=== PATIENT | female | born 1950 | race Caucasian/White ===

== ENCOUNTER 2017-03-13 22:26 | Emergency (ER) | payer MEDICARE ==
[2017-03-13] MEDS ORDERED: OXYMETAZOLINE 0.05% NASAL 15 SPRAYS/15 ML BTL NASAL ONE ×2 (22:55→22:58)
[2017-03-13] MEDS ORDERED: cloNIDine HCL 0.1 MG TABLET PO ONE (23:51)
[2017-03-14] MEDS ORDERED: cloNIDine HCL 0.1 MG TABLET PO ONE (00:13)
--- NOTE | 2017-03-14 00:44 | ER NURSING DOCUMENTATION ---
Nurse's Notes [facility] Name:Landy Savage Age:66 yrs Sex:Female :1950 Arrival Date:03/13/2017 Time:22:26 Bed1 Private MD: Diagnosis:Epistaxis - Nose Bleed Presentation: 03/13 22:29 Acuity: SHREE 3 bw2 22:36 Presenting complaint: Patient states: pt states shes had a nosebleed x 1 hour. pt bw2 denies trauma. pt states shes had a dry nose since arriving to this elevation. Transition of care: patient was not received from another setting of care. 22:36 Method Of Arrival: Walk In 2 Triage Assessment: 22:37 General: Appears in no apparent distress, Behavior is anxious, appropriate for age. bw2 Pain: Denies pain. EENT: Nares with bleeding noted. Historical: - Allergies: No known drug Allergies; - Tetanus: < 10 years. - Ebola Screening: : Patient negative for fever greater than or equal to 101.5 degrees Fahrenheit, and additional compatible Ebola Virus Disease symptoms. Patient denies exposure to infectious person. Patient denies travel to an Ebola-affected area in the 21 days before illness onset. No symptoms or risks identified at this time. . - Immunization history: Flu Vaccine < 1 year. - Social history: Smoking status: Patient states was never smoker of tobacco. Screenin:38 Infectious Disease Risk None. Abuse screen: Denies threats or abuse. Nutritional bw2 screening: No deficits noted. Assessment: 22:38 See Triage Assessment done by same RN. bw2 Vital Signs: 22:37 BP 212 / 102; Pulse 74; Resp 18; Temp 97.8; Pulse Ox 99% ; Weight 72.57 kg; Height 5 bw2 ft. 4 in. (162.56 cm); Pain 0/10; 22:50 BP 183 / 90; bw2 03/14 00:42 BP 173 / 80; Pulse 81; Resp 17; Pulse Ox 96% on R/A; bw2 03/13 22:37 Body Mass Index 27.46 (72.57 kg, 162.56 cm) 2 ED Course: 03/13 22:27 Patient arrived in ED. ma1 22:29 Mary Jo Morgan is Primary Nurse. bw2 22:29 Triage completed. bw2 22:38 Valuables Remains with patient Patient has correct armband on for positive bw2 identification. 22:50 Nosebleed Care Nasal Clamp Applied. bw2 23:29 Binu Beltran MD is Attending Physician. alysha Administered Medications: 22:50 Drug: Afrin Drops (0.05 %) 1 sprays; Route: Intranasal; Site: both nares; bw2 23:38 Drug: cloNIDine 0.1 mg; Route: PO; bw2 03/14 00:20 Follow up: Response: No change in condition bw2 00:00 Drug: cloNIDine 0.1 mg; Route: PO; 2 Outcome: 03/13 23:32 Discharge ordered by . alysha 03/14 00:42 Discharged to home ambulatory, with significant other. 2 Condition: good Discharge Assessment: Patient awake, alert and oriented x 3. No cognitive and/or functional deficits noted. Patient verbalized understanding of disposition instructions. Discharge instructions given to patient, significant other, Instructed on discharge instructions, follow up and referral plans. medication usage, Nosebleed care Demonstrated understanding of instructions, medications, Prescriptions given X 1. 00:42 Patient left the ED. 2 03/15 13:51 Discharge F/U Call: Unable to reach: no answer Signatures: Binu Beltran MD MD jm Hofsess, [facility] Paulette Lassiter ma
--- NOTE | 2017-03-14 00:44 | ER PHYSICIAN DOCUMENTATION ---
Physician Documentation [facility] Name:Landy Savage Age:66 yrs Sex:Female :1950 Arrival Date:03/13/2017 Time:22:26 Bed1 Private MD: Binu Chowdhury Disposition: 03/13/17 23:32 Discharged to Home/Self Care. Impression: Epistaxis - Nose Bleed. - Condition is Good. - Discharge Instructions: EPISTAXIS (Adult). - Prescriptions for losartan 50 mg Oral tablet - take 1 tablet by ORAL route once daily; 20 tablet. - Medical Reconciliation form form. - Follow up: Private Physician; When: As needed; Reason: Continuance of care. - Problem is new. - Symptoms have improved. HPI: 03/13 23:00 This 66 yrs old Female presents to ER via Walk In with complaints of Nose jm Bleed. 23:00 The patient presents with a nose bleed, that is apparently anterior, from the left jm nare. Onset: The symptom(s)/episode began/occurred 2 hour(s) ago. Severity of symptoms: in the emergency department the symptoms have improved. Historical: - Allergies: No known drug Allergies; - Tetanus: < 10 years. - Ebola Screening: : Patient negative for fever greater than or equal to 101.5 degrees Fahrenheit, and additional compatible Ebola Virus Disease symptoms. Patient denies exposure to infectious person. Patient denies travel to an Ebola-affected area in the 21 days before illness onset. No symptoms or risks identified at this time. . - Immunization history: Flu Vaccine < 1 year. - Social history: Smoking status: Patient states was never smoker of tobacco. ROS: 23:00 Constitutional: Negative for fever. 23:00 ENT: Positive for nose bleed. Exam: 23:00 Constitutional: The patient appears alert, awake. 23:00 ENT: Nose: Nasal mucosa: normal, bleeding, is not appreciated, Examination of the other nostril shows no obvious abnormality. Vital Signs: 22:37 BP 212 / 102; Pulse 74; Resp 18; Temp 97.8; Pulse Ox 99% ; Weight 72.57 kg; Height 5 bw2 ft. 4 in. (162.56 cm); Pain 0/10; 22:50 BP 183 / 90; bw2 0704 00:42 BP 173 / 80; Pulse 81; Resp 17; Pulse Ox 96% on R/A; [facility] 03/13 22:37 Body Mass Index 27.46 (72.57 kg, 162.56 cm) 2 Procedures: 01:08 Epistaxis treatment: A small amount of bleeding noted from Treated using Oxymetazoline sprays, direct pressure, nasal clamp, Bleeding stopped. MDM: 03/13 22:30 Patient medically screened. 03/14 01:08 Differential diagnosis: spontaneous epistaxis. Data reviewed: vital signs, nurses jm notes, and as a result, I will discharge patient. Counseling: I had a detailed discussion with the patient and/or guardian regarding: the historical points, exam findings, and any diagnostic results supporting the discharge/admit diagnosis. Medication response: The patient's symptoms have improved, clonidine partially reduced the patient's blood pressure. Response to treatment: the patient's symptoms have markedly improved after treatment. ED course: Pts BP is elevated, so clonidine was given. Pt will increase her losartan to 25 BID instead of 25 daily. . Dispensed Medications: 03/13 22:50 Drug: Afrin Drops (0.05 %) 1 sprays; Route: Intranasal; Site: both nares; [facility] 23:38 Drug: cloNIDine 0.1 mg; Route: PO; [facility] 03/14 00:20 Follow up: Response: No change in condition [facility] 00:00 Drug: cloNIDine 0.1 mg; Route: PO; 2 Signatures: Binu Beltran MD MD jm Wisely, [facility]
== END 2017-03-14 00:43 | disposition home or self-care (01) ==
LOC: ER 22:26
DX: R04.0 Epistaxis (principal); I10 Essential (primary) hypertension; Z79.899 Other long term (current) drug therapy
CPT/HCPCS: 30901; 99282; 99283